=== PATIENT | male | born 1960 | race Caucasian/White ===

== ENCOUNTER 2024-01-15 15:19 | Emergency (ER) | payer OTHER, SELFPAY ==
--- NOTE | ~2024-01-15 | XR_ITS ---
EXAMINATION: XR CHEST CLINICAL INFORMATION: Shortness of breath. COMPARISON: None available. TECHNIQUE: 2 views of the chest were obtained. FINDINGS: The lungs are well expanded. There appears to be redistribution of pulmonary vasculature. No focal consolidation. No pleural effusion. Cardiac silhouette is within normal limits. XR/XR chest 2V IMPRESSION: Pulmonary vascular congestion. Advise clinical correlation.
--- NOTE | 2024-01-15 15:21 | ECG_ITS ---
Test Reason : CHEST PAIN Blood Pressure : / mmHG Vent. Rate : 079 BPM Atrial Rate : 079 BPM P-R Int : 122 ms QRS Dur : 094 ms QT Int : 388 ms P-R-T Axes : 054 067 068 degrees QTc Int : 444 ms Normal sinus rhythm Normal ECG No previous ECGs available Referred By: Cesar Simpson Electronically Signed By:MARTHA EDEN
[2024-01-15 15:23] VITALS: BP 152/82; PULSE 89; RESP 16; TEMP 36.9; BMI 27.3
--- NOTE | 2024-01-15 15:23 | ED_ITS ---
HPI - General Adult General Chief complaint: Dyspnea Stated complaint: SOB, chest tightness, cough Time Seen by Provider: 01/15/24 16:11 Source: patient, RN notes reviewed and old records reviewed Mode of arrival: ambulatory Limitations: no limitations History of Present Illness ED Provider: Jacky MATTHEWS narrative: 63-year-old male with past medical history significant for hypertension presents for evaluation of shortness of breath. Patient reports increasing shortness of breath especially with exertion over the last 4 days. He reports his symptoms started suddenly. He denies any sharp chest pains with exertion. He does endorse ?rib pain on both sides with coughing. ? He denies any leg swelling Denies any history of coronary artery disease The patient is a former smoker and quit a month and a half ago He reports some chills but denies fevers The patient admits to having chills but no fevers He denies any known history of COPD or asthma Per the patient's daughter, he has been using an albuterol nebulizer that was prescribed to her and has been using it 4 times per day Related Data Previous Rx's ?Medication ?Instructions ?Recorded albuterol sulfate 90 mcg/actuation 1 inh inhalation QID PRN shortness 01/15/24 aerosol inhaler of breath or wheezing #8.5 grams azithromycin 250 mg tablet See Rx Instructions PO .COMPLEX #6 01/15/24 tabs Allergies Allergy/AdvReac Type Severity Reaction Status Date / Time prednisone Allergy Anaphylaxis Verified 01/15/24 18:15 Review of Systems 2 Constitutional: Constitutional: Denies body ache(s), Reports chills, Denies fever(s), Denies headache(s) and Denies stops breathing during sleep Eyes: Eyes: Denies blurry vision ENT: Denies vertigo, Denies dizziness and Denies headache(s) Cardiovascular: Cardiovascular: Denies chest pain, Denies chest pain at rest, Denies chest pain with activity, Denies leg edema, Reports dyspnea and Reports dyspnea on exertion Respiratory: Respiratory: Reports cough, Reports pain on inspiration, Reports dyspnea and Reports dyspnea on exertion Gastrointestinal: Gastrointestinal: Denies abdominal pain, Denies nausea and Denies vomiting Musculoskeletal: Musculoskeletal: Denies back pain Integumentary/Breasts: Skin/Breast: Denies rash Neurologic: Denies vertigo, Denies dizziness and Denies headache(s) [facility] Social History Social History Use of substances other than those prescribed or required for medical reasons: No Advance Directives: No Advance Directives Information Provided: No Physical Exam ED Vital Signs: Vital Signs - 24 hr 01/15/24 15:23 01/15/24 16:55 01/15/24 18:09 Temperature 98.4 F 98.7 F Pulse Rate 89 78 80 Respiratory Rate 16 17 16 Blood Pressure 152/82 H 138/82 Pulse Oximetry 96 Oxygen Delivery Method Room Air Room Air BMI result Body Mass Index 27.3 Resp Auscultation: not clear to auscultation bilaterally, rhonchi right lower; Negative for left upper, right upper and left lower and wheezes lower bilaterally Course Course Course Narrative: This is an RME done by EVENS Simpson: Additional HPI, ROS, PE not included below will be deferred to primary provider. 63 yoa M with Mhx of HTN, HLD presenting to the ED with difficulty breathing with exertion since Saturday, reports episodes of nausea. Patient has a Hx of smoking, daughter reports patient used her albuterol every 4 hrs with minimal relief. Patient states hes experienced productive cough of whitish colored, rib pain in the setting coughing. Denies fevers, dizziness, headaches, abdominal pain and falls. Appearance: Alert.? Oriented X3.? No acute cardiopulmonary distress distress.? Head: Normocephalic, atraumatic, no step-offs or deformities Neck: Normal inspection.? Neck supple.? CVS: Pulses normal.? Respiratory: No respiratory distress.?No wheezing but mild rales bilaterally. Skin: ? Normal skin color. Extremities: 5/5 strength to bilateral upper and lower extremities Neuro: Oriented X 3.? No motor deficit.? No sensory deficit. Reevaluation(s) Reevaluation #1: Patient's workup largely unremarkable, chest x-ray shows mild pulmonary vascular congestion. There are no pleural effusions, his BNP is only 18, he has no lower extremity edema, his symptoms are not worse with lying flat. The clinical picture is not consistent with CHF. After his DuoNeb he reports feeling much better, he ambulated with an oxygen saturation maintaining above 94%. He reported feeling well while ambulating and did not need a break to sit down. Patient's D-dimer was 243. Adjusting for age this is a negative test. He is low risk for PE. Will defer CTA at this time. Plan to discharge the patient with prednisone and azithromycin Time: 17:57 Reevaluation #2: Upon going over discharge instructions the patient then mentioned that he had taken prednisone in the past and had an adverse reaction where ?I stopped breathing. ? Due to this now reported allergy, we will discontinue prednisone and I will not prescribe any other corticosteroids at this time Time: 18:15 Medications Administered Discontinued Medications Generic Name Dose Route Start Last Admin Trade Name Magenq PRN Reason Stop Dose Admin Albuterol/Ipratropium 3 ml 01/15/24 16:38 01/15/24 16:53 Albuterol/Iprat 2.5/0.5mg 3 Ml Ampul.Neb INHALE 01/15/24 16:39 3 ml ONCE ONE Administration Medical Decision Making Medical Decision Making [facility] Narrative: 63-year-old male presents for evaluation of shortness of breath, cough and dyspnea on exertion. He does have a long smoking history reports quitting 6 weeks ago. He reports chills but no fevers. On exam he appears to have more rhonchi in the right lower lobe plan for x-ray to rule out pneumonia. He denies any chest pain, his only risk factors for ACS are age, smoking history and hypertension, he has a heart score of 3, his EKG is nonischemic. The clinical picture is not consistent with cardiac disease. Plan for viral swabs as well. I will add on a D-dimer but I feel that PE is less likely Differential Diagnosis Differential Diagnoses: The differential diagnosis associated with the presentation includes COPD exacerbation Pneumonia Bronchitis Congestive heart failure COVID-19 Lab Data [facility] Lab Attestation statement: I reviewed the patient's lab results. No leukocytosis. The patient has a very mild anemia. Platelet count is just below normal at 148 K. no electrolyte abnormalities. Random glucose elevated to 138. Patient's troponin is 5, again there is no chest pain and symptoms been going on for 4 days, this rules out ACS. BNP is 18, within normal limits 01/15/24 15:37 01/15/24 15:37 Labs: Lab Results 01/15/24 01/15/24 Range/Units 15:37 15:52 WBC 6.1 (4.8-10.8) X10*3/uL RBC 4.36 L (4.60-5.80) X10*6/uL Hgb 13.6 L (14.0-18.0) g/dl Hct 40.5 L (42.0-52.0) % MCV 92.9 (80.0-98.0) fL MCH 31.2 (27.0-33.0) pg MCHC 33.6 (31.0-36.0) g/dl RDW 12.5 (11.0-16.0) % Plt Count 148 L (160-400) X10*3/uL MPV 13.0 H (9.4-12.4) fL Immature Gran % (Auto) 0.2 (0.0-0.4) % Neut % (Auto) 39.4 L (45-73) % Lymph % (Auto) 46.0 H (20-40) % Prentiss % (Auto) 10.6 (2-11) % Eos % (Auto) 3.3 (0-4) % Baso % (Auto) 0.5 (0-2) % Lymph # (Auto) 2.8 (1.2-4.9) X10*3/uL Prentiss # (Auto) 0.7 (0.1-1.2) X10*3/uL Eos # (Auto) 0.2 (0.0-0.4) X10*3/uL Baso # (Auto) 0.0 (0.0-0.2) X10*3/uL Abs Immat Gran (auto) 0.01 (0.00-0.03) X10*3/uL Absolute Neuts (auto) 2.4 (2.0-8.3) x10*3/uL Absolute Nucleated RBC 0.000 (0.0-0.012) X10*3/uL Nucleated RBC % (auto) 0.0 (0.0-0.2) /100WBC PT 10.6 L (11.1-13.3) SEC INR 0.9 (0.9-1.1) D-Dimer High Sensitivty 243 NG/ML Sodium 143 (135-145) mmol/L Potassium 4.2 (3.3-5.1) mmol/L Chloride 107 (96-108) mmol/L Carbon Dioxide 28 (22-29) mmol/L Anion Gap 12 (12-20) BUN 15 (9-16) mg/dL Creatinine 0.85 (0.5-1.4) mg/dL Estim Creat Clear Calc 86.6 Estimated GFR > 60 Random Glucose 138 H (60-115) mg/dL Calcium 9.3 (8.4-10.2) mg/dL Total Bilirubin 0.3 (0.0-1.0) mg/dL AST 26 (5-37) U/L ALT 37 (0-40) U/L Alkaline Phosphatase 87 (39-117) U/L Troponin I High Sens 5.0 (<3.5-35.0) ng/L B-Natriuretic Peptide 18 (<100) pg/mL Total Protein 7.2 (6.5-8.0) g/dL Albumin 4.3 (3.5-5.0) g/dL Influenza Type A (PCR) NEGATIVE (Negative) Influenza Type B (PCR) NEGATIVE (Negative) RSV RNA Qual (PCR) NEGATIVE (Negative) SARS-CoV-2 RNA (RT-PCR) NEGATIVE (Negative) Independent Interpretation I performed an independent interpretation of an: EKG and Plain X-Ray (No focal infiltrates) Interpretation: Normal sinus rhythm with a rate of [address] segment elevations or depressions Radiology Impression Discussion of test interpretation with radiology: I have reviewed the radiologist's reading. Radiologist Impression: XR/XR chest 2V IMPRESSION: Pulmonary vascular congestion. Advise clinical correlation. Discharge Plan Discharge Clinical Impression: Dyspnea on exertion Patient Disposition: Home, Self-Care Instructions: Dyspnea (ED) Additional Instructions: Take the azithromycin as prescribed. Use your albuterol inhaler as needed for wheezing. Follow-up with your primary doctor, return for new or worsening symptoms Prescriptions: New albuterol sulfate 90 mcg/actuation HFA aerosol inhaler 1 inh inhalation QID PRN (Reason: shortness of breath or wheezing) Qty: 8.5 0RF azithromycin 250 mg tablet See Rx Instructions .ROUTE .COMPLEX Qty: 6 0RF Rx Instructions: For 250 mg dose pack: take 500 mg today (day 1), then 250 mg for 4 days (days 2-5) Interventions: ED Discharge Assessment Last Done: 01/15/24 18:09 Discharge Date/Time: 01/15/24 18:14 Print Language: Nepali
[2024-01-15 15:47] LABS: MANUAL DIFF FLAG NO
[2024-01-15 15:54] LABS: Basophils Percent Auto 0.5 % (0-2); Eosinophils Absolute Auto 0.2 X10*3/uL (0.0-0.4); Eosinophils Percent Auto 3.3 % (0-4); Hematocrit 40.5 % (42.0-52.0); Hemoglobin 13.6 g/dl (14.0-18.0); Imm Gran Abs Auto 0.01 X10*3/uL (0.00-0.03); Imm Gran Pct Auto 0.2 % (0.0-0.4); Lymphocytes Absolute Auto 2.8 X10*3/uL (1.2-4.9); Mean Corpuscular HGB Conc 33.6 g/dl (31.0-36.0); Mean Corpuscular Hemoglobin 31.2 pg (27.0-33.0); Mean Corpuscular Volume 92.9 fL (80.0-98.0); Monocytes Absolute Auto 0.7 X10*3/uL (0.1-1.2); Monocytes Percent Auto 10.6 % (2-11); Neutrophils Absolute Auto 2.4 x10*3/uL (2.0-8.3); Neutrophils Percent Auto 39.4 % (45-73); Platelet Count 148 X10*3/uL (160-400); Red Blood Count 4.36 X10*6/uL (4.60-5.80); Red Cell Distribution Width 12.5 % (11.0-16.0); White Blood Count 6.1 X10*3/uL (4.8-10.8)
[2024-01-15 15:56] LABS: INTERNATIONAL NORM RATIO 0.9 (0.9-1.1); Prothrombin Time 10.6 SEC (11.1-13.3)
[2024-01-15 16:11] LABS: B Type Natriuretic Peptide 18 pg/mL (<100)
[2024-01-15 16:13] LABS: Alanine Aminotransferase 37 U/L (0-40); Albumin Level 4.3 g/dL (3.5-5.0); Alkaline Phosphatase 87 U/L (39-117); Anion Gap 12 (12-20); Aspartate Amino Transferase 26 U/L (5-37); Bilirubin Total 0.3 mg/dL (0.0-1.0); Blood Urea Nitrogen 15 mg/dL (9-16); Calcium 9.3 mg/dL (8.4-10.2); Carbon Dioxide 28 mmol/L (22-29); Chloride 107 mmol/L (96-108); Creatinine Clr Calc Pharmacy 86.6; Estimated Glomerular Filt Rate > 60; Glucose Random 138 mg/dL (60-115); Potassium 4.2 mmol/L (3.3-5.1); Sodium 143 mmol/L (135-145); Total Protein 7.2 g/dL (6.5-8.0)
[2024-01-15 16:40] LABS: Influenza A PCR NEGATIVE (Negative); Influenza B PCR NEGATIVE (Negative); Resp Syncy Virus RNA Qual PCR NEGATIVE (Negative); SARS COV2 PCR INHOUSE NEGATIVE (Negative)
[2024-01-15] MEDS: Albuterol/Iprat 2.5/0.5MG 3 ML AMPUL.NEB INHALE (16:53)
[2024-01-15 16:55] VITALS: PULSE 78; RESP 17; O2SAT 95
[2024-01-15 17:41] LABS: D Dimer High Sensitivity 243 NG/ML
[2024-01-15 18:09] VITALS: BP 138/82; PULSE 80; RESP 16; TEMP 37.1; O2SAT 96
== END 2024-01-15 18:14 | disposition home or self-care (01) ==
PROVIDERS: Physician Assistant; Emergency Provider Internal Medicine
DX: R06.02 Shortness of breath (principal); R07.89 Other chest pain; R05.9 Cough, unspecified; R07.81 Pleurodynia; R11.0 Nausea; I10 Essential (primary) hypertension; Z03.818 Encounter for observation for suspected exposure to other biological agents ruled out; Z79.899 Other long term (current) drug therapy
CPT/HCPCS: 0241U; 36415; 71046; 80053; 83880; 84484; 85025; 85379; 85610; 93005; 94640; 99285